=== PATIENT | female | born 1985 | race Caucasian/White ===

== ENCOUNTER 2018-10-03 09:41 | Inpatient (IN) | payer OTHER ==
[~2018-10-03] VITALS: Ht 165.1 cm; Wt 114.0 kg
--- NOTE | ~2018-10-03 | OR ---
[facility] [address], [place] [address] Draft DATE OF OPERATION: 10/03/2018 SURGEON: Donita Hendrix MD PREOPERATIVE DIAGNOSIS: Term , previous section, preeclampsia. POSTOPERATIVE DIAGNOSIS: Term , previous section, preeclampsia, delivered. PROCEDURE: Repeat section with low segment transverse uterine incision. ANESTHESIA: Spinal. ESTIMATED BLOOD LOSS: 700 mL. DRAINS: Smith catheter. INDICATIONS AND FINDINGS: The patient is a 32-year-old female, 2, para 1, admitted at 38 and 3/7th weeks for repeat section secondary to preeclampsia, at term. Her had otherwise been unremarkable until this week when her blood pressures were elevated. She had a headache earlier in the week as well as some swelling. Lab work was within the normal range. heart tones were reactive and reassuring. At the time of surgery, she was delivered of a little girl from the cedrick breech via lower segment uterine incision as a right sacrum anterior with Apgars of 9 and 9 and weight of 7 pounds 12 ounces. The placenta, uterus, tubes, ovaries appeared normal. DESCRIPTION OF PROCEDURE: The patient was prepped and draped in the supine position. A repeat Pfannenstiel skin incision was made and carried down through the fascia. The incision was extended laterally. The inferior and superior fascial flaps were then created. The muscles were bluntly divided and the peritoneum entered sharply and the incision extended superiorly and inferiorly. The Boris retractor was then placed and the uterine incision was made at the upper aspect of the peritoneal reflection. The baby was delivered with the above findings and handed off to the pediatric staff in attendance. The placenta was removed PATIENT NAME: ALICE ALLEN OPERATIVE REPORT DATE OF : 87 REPORT #: [id number] PHYSICIAN: DONITA HENDRIX MD PCP: DONITA HENDRIX MD REPORT IS CONFIDENTIAL AND NOT TO BE RELEASED WITHOUT AUTHORIZATION [facility] [address], [place] [address] Draft manually and the uterus explored with a lap tape assuring no remaining fragments. The edges of the incision were identified. The uterus was closed in 2 layers with #0 Monocryl. The first layer was a running locking stitch and the 2nd a vertical imbricating stitch. Additional sutures were required in the midportion as well as the right angle for control of bleeding. The abdomen was then copiously irrigated, inspected and bleeding points controlled with cautery. Good hemostasis was seen. The retractor was removed. The peritoneum identified. An ACell graft was laid over the lower segment to aid in healing. The peritoneum was then closed with a running suture of 3-0 Vicryl. The muscles were brought together with interrupted sutures of 0 Vicryl. Bleeding points were controlled with cautery. This layer was irrigated and found to be hemostatic. ACell powder was sprinkled over the muscles to aid in healing. The fascia was closed from each angle to the midline with a running suture of 0 Vicryl. The subcutaneous tissue was irrigated and bleeding points controlled. The deep space was closed with interrupted sutures of 3-0 Vicryl. The skin was closed with mayela. All sponge and needle counts were correct. She tolerated procedure well and was taken to the recovery room in good condition. MD GINGER Montiel/DAVIDL /[id number] cc: Chanda Yo DO Copies: CHANDA YO DO ~ PATIENT NAME: ALICE ALLEN OPERATIVE REPORT DATE OF : 87 REPORT #: [id number] PHYSICIAN: DONITA HENDRIX MD PCP: DONITA HENDRIX MD REPORT IS CONFIDENTIAL AND NOT TO BE RELEASED WITHOUT AUTHORIZATION
--- NOTE | 2018-10-03 18:31 | NUR ---
10/03/181830 Divina Weems 1811- PT ARRIVES TO [facility] RM 104 FROM OR AWAKE AND ALERT. RESP EVEN AND UNLABORED, SATS 100% ON RA. PT DENIES ANY NAUSEA AND STATES DISCOMFORT "LIKE HEARTBURN" 3/10 AND COMFORTABLE. PT HOB RAISED SLIGHTLY. PT SIG OTHER AT BEDSIDE. 1819- BABY TO CHEST, ON LEFT BREAST. VSS.
--- NOTE | 2018-10-04 07:43 | PR ---
[facility] [address] [facility] [place], [place] [address] Signed PP Progress Notes Datetime Report Generated by CARRILLO: 10/04/2018 07:43 SUBJECTIVE: [id number] Pain: Within normal limits Nausea/Vomiting: Denies Vital Signs: [id number] Vital Signs: Reviewed; Within Normal Limits EXAM: [id number] Cardiovascular: Normal Respiratory: Normal Abdomen/Uterus: Abnormal Lochia: Normal Vulva/Perineum: Not Done Breasts: Not Done CVA Tenderness: Not Done Extremities: Normal Incision: Normal Progress: Normal Exam Comments: Abdomen with active BS. Fundus firm, sl tender @ U. H/H 8.9/27, WBC 8.6, plat 150k IMPRESSION/PLAN/PROCEDURES: [id number] Impression: Normal progression Other Plans: ambulate, shower, D/C IV fluids Procedures: None Progress Notes: Doing well. Will increase activity but otherwise doing OK. Signing Physician: Donita Hendrix MD Copies: ~ *Electronically Signed* 10/04/18 0743 DONITA HENDRIX MD PATIENT NAME: MARCELLA DOUGLASSALICE SUTHERLAND PROGRESS NOTE DATE OF : 87 PHYSICIAN: DONITA HENDRIX MD RPT #: [id number] REPORT IS CONFIDENTIAL AND NOT TO BE RELEASED WITHOUT AUTHORIZATION
--- NOTE | 2018-10-05 11:15 | PR ---
[facility] [address] [facility] [place], [place] [address] Signed PP Progress Notes Datetime Report Generated by CPN: 10/05/2018 11:14 SUBJECTIVE: [id number] Pain: Within normal limits Pain Comments: diarrhea overnight Nausea/Vomiting: Denies Flatus: Yes Bowel Movement: Yes Vital Signs: [id number] Vital Signs: Reviewed; Within Normal Limits EXAM: [id number] Cardiovascular: Normal Respiratory: Normal Abdomen/Uterus: Abnormal Lochia: Normal Vulva/Perineum: Not Done Breasts: Not Done CVA Tenderness: Not Done Extremities: Normal Incision: Normal Progress: Normal Exam Comments: Abdomen with active BS. Fundus firm, NT @ U-1. IMPRESSION/PLAN/PROCEDURES: [id number] Impression: Normal progression Plan: Remove mayela; Discharge Other Plans: ambulate, shower, D/C IV fluids Procedures: None Progress Notes: Doing well. She would prefer to go home later today. Signing Physician: Donita Hendrix MD Copies: ~ *Electronically Signed* 10/05/18 1114 DONITA HENDRIX MD PATIENT NAME: MARCELLA ALICE SANTIAGO PROGRESS NOTE DATE OF : 87 PHYSICIAN: DONITA HENDRIX MD RPT #: [id number] REPORT IS CONFIDENTIAL AND NOT TO BE RELEASED WITHOUT AUTHORIZATION
== END 2018-10-05 19:25 | disposition home or self-care (01) | DRG 788 ==
LOC: FBCO 09:41 → FBC 13:20
PROVIDERS: ADMIT Obstetrics & Gynecology
PROC: 10D00Z1 Extraction of Products of Conception, Low, Open Approach (ICD-10-PCS; principal; 2018-10-03 17:00)
DX: O34.211 Maternal care for low transverse scar from previous cesarean delivery (principal); N85.8 Other specified noninflammatory disorders of uterus; O14.94 Unspecified pre-eclampsia, complicating childbirth; Z3A.38 38 weeks gestation of pregnancy; Z37.0 Single live birth; O99.824 Streptococcus B carrier state complicating childbirth; O32.1XX0 Maternal care for breech presentation, not applicable or unspecified; O99.214 Obesity complicating childbirth; E66.9 Obesity, unspecified; O99.284 Endocrine, nutritional and metabolic diseases complicating childbirth; E55.9 Vitamin D deficiency, unspecified; Z79.899 Other long term (current) drug therapy
CPT/HCPCS: 01961; 36415; 82565; 82570; 84156; 84450; 84520; 84550; 85025; 85027; J0690; J1644; J1885; J2274; J2300; J2405; J2590; J7040; J7120